=== PATIENT | female | born 1970 | race Caucasian/White ===

== ENCOUNTER 2018-07-05 04:54 | Day surgery (SDC) | payer OTHER ==
[2018-07-04 12:52] VITALS: BMI 28.5
--- NOTE | 2018-07-04 20:51 | HP ---
[facility] - Chief Complaint Chief Complaint: This patient is here for removal of endometrial polyps. History of Present Illness: The patient recently underwent an ultrasound of the pelivis for irregular periods and was found to have endometrial polyps. 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: Alzheimer's, CVA, Dementia, Migraine, Multiple Sclerosis, Peripheral Neuropathy, Parkinson's, Seizure, Syncope, TIA, Vertigo, Other Cardiovascular: No: AFIB, Aneurysm, Aortic Insufficiency, Aortic Stenosis, CAD, CHF, Deep Vein Thrombosis, HTN, Hyperlipdemia, [place], Mitral Insufficiency, Mitral Stenosis, Murmur, Pulmonary Hypertension, Other Pulmonary: No: Asthma, Bronchitis, Cancer, COPD, O2 Dependent, Pneumonia, Previously Intubated, Pulmonary Embolus, Pulmonary Fibrosis, Sleep Apnea, Other Gastrointestinal: No: Ascites, Cancer, Constipation, Crohn's Disease, Diverticulitis, Diverticulosis, Esophageal Varices, Gastritis, GERD, GI Bleed, Hemorrhoids, Hiatal Hernia, Inflamatory Bowel Disease, Irritable Bowel Disease, Pancreatitis, Peptic Ulcer Disease, Ulcerative Colitis, Other Hepatobiliary: No: Cirrhosis, Cholelithiasis, Cholecystitis, Choledocholithiasis , Hepatitis A, Hepatitis B, Hepatitis C, Other Renal/: No: Renal Failure, Renal Inusuff, BPH, Cancer, Hematuria, Hemodialysis , Neurogenic Bladder, Renal Calculi, UTI, Other Reproductive: No: Ectopic , Endometriosis, Fibroids, PID, Polycystic Ovary Syndrome, Postmenopausal, Other ...LMP: 06/21/18 ...: No ...: 2 ...Para: 2 Heme/Onc: No: Anemia, B12 Deficiency, Bleeding Disorder, Cancer, Current Chemotherapy, Current Radiation Therapy, Hemochromatosis, Hypercoaguable State, Myeloproliferative Synd, Sickle Cell Disease, Sickle Cell Trait, Thrombocytopenia, Other Infectious Disease: No: AIDS, C-Diff, Herpes Zoster, HIV, MRSA, STD's, Tuberculosis, VREF, Other Musculoskeletal: No: Bursitis, Chronic low back pain, Hemiparesis, Hemiplegia, Osteoarthritis, Paraplegia, Other Rheumatology: No: Fibromyalgia, Gout, Lupus, Rheumatoid Arthritis, Sarcoidosis, Vasculitis, Other ENT: No: Allergic Rhinitis, Sinusitis, Other Endocrine: No: Guadalupe's Disease, Navin's Disease, Diabetes Insipidus, Diabetes Mellitus, Hyperparathyroidism, Hyperthyroidism, Hypothyroidism, Osteopenia, SIADH, Other Dermatology: No: Basal Cell, Cellulitis, Eczema, Melanoma, Psoriasis, Squamous Cell, Other - Current Medications Current Medications: Home Medications Medication Instructions Recorded NK [No Known Home Medication] 07/04/18 Satellite Physical Exam - Physical Examination General Appearance: Well Nourished, Well Developed, Alert & Oriented x3 ENT: Clear, No Discharge, No masses Lung: Clear to auscultation Heart: Regular rate & rhythm, Normal S1, Normal S2 Breasts: Soft, Non-Tender, No masses bilaterally Abdomen: Soft, No tenderness, No CVA Extremities: No edema, No tenderness/swelling Pelvic Exam: Within normal limits External Genitalia, Within normal limits Vagina, Within normal limits Cervix, Within normal limits Uterus, Within normal limits [facility] Neurological: Intact, Alert, Oriented Satellite Impression/Plan - Impression/Plan Impression: Endometrial polyps Operative Procedure: Hysteroscopy with polypectomy and D/C Date to be Performed: 07/05/18
[2018-07-05] MEDS ORDERED: MIDAZOLAM HCL 2 MG/2 ML SINGLE DOSE VIAL ONE (07:56)
[2018-07-05] MEDS ORDERED: KETOROLAC TROMETHAMINE 30 MG/1 ML VIAL ONE (08:08)
[2018-07-05] MEDS ORDERED: DEXAMETHASONE SOD PHOSPHATE 4 MG/1 ML VIAL ONE (08:08)
[2018-07-05] MEDS ORDERED: LIDOCAINE HCL/PF 2% SDV 5ML VIAL ONE (08:08)
[2018-07-05] MEDS ORDERED: PROPOFOL 20 ML ONE ×3 (08:09)
[2018-07-05] MEDS ORDERED: oxyCODONE HCL 5 MG TABLET PO PRN (09:16)
[2018-07-05] MEDS ORDERED: PROMETHAZINE HCL 25 MG/1 ML VIAL IVPB PRN (09:16)
[2018-07-05] MEDS ORDERED: ONDANSETRON 4 MG/2 ML VIAL IVPUSH PRN (09:16)
--- NOTE | 2018-07-05 09:58 | OP ---
DATE OF OPERATION: 07/05/2018 DESCRIPTION OF PROCEDURE: The patient was brought to the operating room, placed in the supine position, given MAC anesthesia by Dr. Luque. The patient was placed in the lithotomy position, prepped and draped in the usual manner for D&C. The patient was then prepped and draped. The timeout was correct. The patient was examined. Uterus was noted to be anteverted, normal size, adnexa negative. A speculum was placed into the vagina. The anterior lip of the cervix was grasped with a tenaculum. The cervix was dilated with Palmer dilators. The Syntheon resectoscope polypectomy instrument was inserted. The patient was noted to have abundant polyps and endometrial tissue. The resection was carried out using the Syntheon machine. The patient tolerated the procedure well. After the completion of the Syntheon polypectomy, a D&C was carried out with a medium-sized curet. Tissue was obtained and sent to Pathology. This was followed by an endocervical curettage using a medium-sized curet. The estimated blood loss was approximately 15 mL. The patient did well. After the procedure was completed, the speculum was removed from the vagina. The tenaculum was removed from the anterior lip of the cervix. The vagina was cleared of blood and clots. The patient again, as stated, did well and was transferred to the recovery room. SHEMAR BURTON M.D. [id number]
[2018-07-05 11:53] VITALS: BP 121/83; PULSE 90; TEMP 97.9
--- NOTE | 2018-07-08 14:42 | PATH ---
Surgical Pathology Report Patient Name: [facility]. Rec. #: [id number] /Age/Gender: 1970 (Age: 47) / F Account: [id number] Location: [facility] SURGICAL Taken: 07/05/2018 Received: 07/05/2018 Reported: 07/08/2018 Physicians: Catarino Taylor M.D. Specimen(s) Received A: ENDOCERVICAL CURETTINGS B: ENDOMETRIAL CURETTINGS C: ENDOMETRIAL TISSUE Clinical History Endometrial polyp Final Diagnosis A. ENDOCERVICAL CURETTINGS, DILATION AND CURETTAGE: POLYPOID FRAGMENTS OF SECRETORY ENDOMETRIUM, LOWER UTERINE SEGMENT, FIBROMUSCULAR TISSUE, AND BENIGN ENDOCERVICAL MUCOSA. B. ENDOMETRIAL CURETTINGS, DILATION AND CURETTAGE: ENDOCERVICAL POLYP AND SCANT SECRETORY ENDOMETRIUM. C. ENDOMETRIAL TISSUES, DILATION AND CURETTAGE: POLYPOID FRAGMENTS OF SECRETORY ENDOMETRIUM, FIBROMUSCULAR TISSUE, BENIGN ENDOCERVICAL MUCOSA, AND SCANT CERVICAL SQUAMOUS MUCOSA. Electronically Signed Maria M Lim M.D. Gross Description A. Received in formalin labeled "endocervical curettings," is a 1.7 x 1.6 x 0.3 cm aggregate of cronin-brown soft tissue fragments. The formalin is filtered and the specimen is entirely submitted in one cassette. B. Received in formalin labeled "endometrial curettings," is a 1.6 x 0.7 x 0.2 cm pink-cronin, polypoid portion of soft tissue admixed with a 0.8 x 0.6 x 0.1 cm aggregate of cronin red soft tissue fragments. The specimen is submitted in toto in one cassette. C. Received in formalin labeled "endometrial tissues," is a 4.0 x 3.0 x 0.3 cm aggregate of cronin-pink soft tissue fragments. The formalin is filtered and the specimen is entirely submitted in 3 cassettes. /07/05/201807/05/2018
== END 2018-07-05 11:40 | disposition home or self-care (01) ==
LOC: JASU-SURG 04:54
PROVIDERS: ATTEND Obstetrics & Gynecology
PROC: 0UDB7ZX Extraction of Endometrium, Via Natural or Artificial Opening, Diagnostic (ICD-10-PCS; principal; 2018-07-05 08:00)
PROC: 0UJD8ZZ Inspection of Uterus and Cervix, Via Natural or Artificial Opening Endoscopic (ICD-10-PCS; 2018-07-05 08:00)
DX: N84.0 Polyp of corpus uteri (principal)
CPT/HCPCS: 36415; 84703; 86850; 86900; 86901; 88305-TC; 94760